=== PATIENT | female | born 2000 | race African-American/Black ===

== ENCOUNTER 2020-01-10 22:06 | Inpatient (IN) ==
[2020-01-10 22:20] VITALS: BMI 29.7
[2020-01-10 23:01] LABS: BILIRUBIN,URINE NEGATIVE (NEGATIVE); BLOOD/HEMOGLOBIN,URINE NEGATIVE (NEGATIVE); GLUCOSE, URINE NEGATIVE (NEGATIVE); KETONES,URINE NEGATIVE (NEGATIVE); LEUKOCYTE ESTERASE ,URINE NEGATIVE (NEGATIVE); NITRITES,URINE NEGATIVE (NEGATIVE); PROTEIN,URINE 1+ (NEGATIVE); UROBILINOGEN,URINE 1+ (NORMAL)
[2020-01-10 23:10] LABS: APPEARANCE,URINE CLEAR (CLEAR); COLOR,URINE YELLOW (YELLOW)
[2020-01-10 23:11] LABS: BASOPHILS % (AUTO) 0.3 % (0.2-1.0); EOSINOPHILS % (AUTO) 0.4 % (0.9-2.9); HEMOGLOBIN 10.3 g/dL (12.0-16.0); LYMPHOCYTES # (AUTO) 2.1 X10^3/uL (1.3-2.9); LYMPHOCYTES % (AUTO) 19.5 % (21.0-51.0); MEAN CORPUSCULAR HEMOGLOBIN 23.7 pg (27.0-34.0); MEAN CORPUSCULAR HGB CONC 32.3 g/dL (33.0-35.0); MEAN CORPUSCULAR VOLUME 73.5 fL (80.0-100.0); MEAN PLATELET VOLUME 8.6 fL (7.4-11.0); MONOCYTES % (AUTO) 8.9 % (0.0-13.0); NEUTROPHILS # (AUTO) 7.6 x10^3/uL (2.2-4.8); NEUTROPHILS % (AUTO) 70.9 % (42.0-75.0); PLATELET COUNT 302 X10^3/uL (150.0-450.0); RED BLOOD COUNT 4.35 X10^6/uL (3.5-5.4); RED CELL DISTRIBUTION WIDTH 15.5 % (11.6-16.5); WHITE BLOOD COUNT 10.7 X10^3/uL (3.6-10.0)
[2020-01-10 23:11] LABS: BACTERIA,URINE NEGATIVE /HPF (NEGATIVE); HYALINE CASTS, URINE RARE /LPF (NEGATIVE); MUCUS,URINE MANY /HPF (NEGATIVE); RBC,URINE 0-2 /HPF (0-3); SQUAMOUS EPITHELIAL CELL,UR RARE /HPF (NEGATIVE)
[2020-01-10 23:13] LABS: BLOOD UREA NITROGEN 5 mg/dL (7-18); CALCIUM 8.3 mg/dL (8.5-10.1); CARBON DIOXIDE 23.1 mmol/L (21-32); CHLORIDE 102 mmol/L (98-107); CREATININE 0.65 mg/dL (0.55-1.02); SODIUM 138 mmol/L (136-145); eGFR NON BLACK RACES > 60 (>60)
[2020-01-10] MEDS ORDERED: D5 1/2 NS 1000 ML 1,000 ML IV ONE (23:15)
[2020-01-10 23:25] LABS: AMNISURE ROM TEST THERE IS A RUPTURE (NO RUPTURE)
[2020-01-10 23:29] LABS: HYPOCHROMASIA SLIGHT; PLATELET MORPHOLOGY COMMENT NORMAL (NORMAL)
[2020-01-10] MEDS: D5 1/2 NS 1000 ML 1,000 ML IV SCH (23:35)
[2020-01-10] MEDS ORDERED: MORPHINE SULFATE INJ 2 MG INJ IVP PRN (23:58)
[2020-01-10] MEDS ORDERED: PHENERGAN INJ 25 MG IM PRN (23:58)
[2020-01-10] MEDS ORDERED: D5LR 1L W PITOCIN 10 UNITS/L 10 UNITS/1,000 ML BAG IV PRN (23:58)
[2020-01-10] MEDS ORDERED: PITOCIN IVP ONE (23:58)
[2020-01-10] MEDS ORDERED: REGLAN INJ 10 MG VIAL IVP PRN (23:58)
[2020-01-11] MEDS ORDERED: STADOL INJ IVP PRN
[2020-01-11] MEDS ORDERED: D5 1/2 NS 1L W PITOCIN 20 UNITS/L 20 UNITS/1,000 ML BAG IV ONE ×2 (00:04→00:08)
[2020-01-11] MEDS ORDERED: FENTANYL INJ 100 mcg ONE (02:00)
[2020-01-11] MEDS ORDERED: LR 1000 ML IV 1,000 ML IV ONE (02:00)
[2020-01-11] MEDS ORDERED: NAROPIN EPIDURAL 0.2% + FENTANYL 90MCG 60 ML EPI ONE (02:00)
[2020-01-11] MEDS ORDERED: MOTRIN TAB 800 MG PO PRN (08:35)
[2020-01-11] MEDS ORDERED: PHENERGAN INJ 25 MG IM PRN (08:35)
--- NOTE | 2020-01-11 08:44 | DR.OB ---
OB Quick Note - Assessment/Plan Assessment/Plan: L&D 01/11/20 at 8:09am Patient complete and pushing. Head delivered over intact perineum. Nose and mouth bulb suctioned. No nuchal cord. Body delivered over intact perineum. Late meconium noted. Cord clamped x 2 and cut. handed to attendant. Cord sent for gases. No CVX / vaginal / perineal tears noted except a small superficial tear at introitus requiring a figure-of-8 stitch of 0-vicryl for hemostasis. Placenta delivered spontaneously / intact / 3 vessel cord. Viable male , VTX/OA, wt=7'11" and 8/9, stable to NBN. Mother stable to RR. [id number].
[2020-01-11] MEDS ORDERED: MILK OF MAGNESIA PO PRN (09:52)
[2020-01-11] MEDS ORDERED: AMBIEN PO PRN (09:52)
[2020-01-11] MEDS ORDERED: ADACEL or BOOSTRIX TDaP VACCINE IM ONE ×2 (09:52→21:25)
[2020-01-11] MEDS ORDERED: DERMOPLAST PAIN RELIEF SPRAY TOP PRN (09:52)
[2020-01-11] MEDS: D5 1/2 NS 1000 ML 1,000 ML with PITOCIN 20 UNITS IV SCH ×4 (10:05→18:13)
[2020-01-11] MEDS: D5 1/2 NS 1000 ML 1,000 ML IV SCH (10:07)
[2020-01-11] MEDS: PRENATAL PLUS PO SCH (13:44)
[2020-01-12] MEDS: D5 1/2 NS 1000 ML 1,000 ML with PITOCIN 20 UNITS IV SCH ×2 (02:00)
[2020-01-12 05:24] LABS: HEMATOCRIT 24.9 % (36.0-47.0)
[2020-01-12 05:30] LABS: HEMOGLOBIN 8.2 g/dL (12.0-16.0)
[2020-01-12] MEDS: FERROUS GLUCONATE PO SCH ×2 (08:04→18:01)
[2020-01-12] MEDS: PRENATAL PLUS PO SCH (08:05)
[2020-01-13] MEDS: FERROUS GLUCONATE PO SCH (06:00)
[2020-01-13] MEDS: PRENATAL PLUS PO SCH (08:28)
[2020-01-13 12:26] VITALS: BP 104/62
== END 2020-01-13 10:36 | disposition home or self-care (01) | DRG 807 ==
LOC: ER 22:06 → LD 23:35 → MED/SURG 01-11 09:53
PROVIDERS: ADMIT Specialist; ATTEND Specialist
DX: Z3A.39 39 weeks gestation of pregnancy; Z23 Encounter for immunization; O70.0 First degree perineal laceration during delivery; Z37.0 Single live birth; O98.313 Other infections with a predominantly sexual mode of transmission complicating pregnancy, third trimester
CPT/HCPCS: 36415; 51701; 80048; 80307; 81001; 84112; 85014; 85018; 85025; 86592; 86850; 86900; 86901; 90715; 96365; 99284; A4216; A4222; J2590; J3010; J7120; S0197; S5010